=== PATIENT | male | born 1980 | race Native Hawaiian/Other Pacific Islander ===

== ENCOUNTER 2017-10-25 13:23 | Emergency (ER) | payer OTHER ==
[~2017-10-25] VITALS: Ht 185.4 cm; Wt 136.1 kg
[2017-10-25 14:04] LABS: PLATELET COUNT 220 K/uL (142-355)
[2017-10-25 14:08] LABS: POTASSIUM 3.5 mmol/L (3.6-5.2)
== END 2017-10-25 15:14 | disposition home or self-care (01) ==
LOC: ED 13:23
DX: R10.9 Unspecified abdominal pain (principal)
CPT/HCPCS: 36415; 74022; 80053; 82150; 83690; 85027; 93005; 99283

== ENCOUNTER 2018-01-04 17:50 | Observation (INO) | payer OTHER ==
[~2018-01-04] VITALS: Ht 185.4 cm; Wt 133.9 kg
[2018-01-04 18:05] VITALS: BP 155/90; TEMP 98.6
[2018-01-04 18:15] LABS: PLATELET COUNT 333 K/uL (142-355)
[2018-01-04 18:40] LABS: POTASSIUM 3.7 mmol/L (3.6-5.2)
[2018-01-04 18:54] LABS: PARTIAL THROMBOPLASTIN TIME 24.2 SECONDS (24.5-33.6)
[2018-01-04 22:33] VITALS: BP 133/84; TEMP 98.4; Ht 185.4 cm; Wt 133.9 kg
[2018-01-04 23:45] VITALS: BP 132/84; TEMP 98.1
[2018-01-05 03:54] VITALS: BP 108/63; TEMP 98.3
[2018-01-05 08:00] VITALS: BP 96/66; TEMP 98
[2018-01-05] MEDS ORDERED: PANTOPRAZOLE 40MG TA PO (08:34)
[2018-01-05] MEDS ORDERED: NITR0.4S SL (08:34)
== END 2018-01-05 10:54 | disposition home or self-care (01) ==
LOC: ED 17:50 → MED/SURG 19:10
DX: R07.89 Other chest pain (principal)
CPT/HCPCS: 36415; 80053; 82550; 84484; 85027; 85610; 85730; 93005; 96365; 96366; 96374; 99220; 99284; G0378; J1650; J2405

== ENCOUNTER 2018-12-06 15:17 | Emergency (ER) | payer OTHER ==
[~2018-12-06] VITALS: Ht 185.4 cm; Wt 142.9 kg
[~2018-12-06 15:17] MED LIST: NITR0.4S SL; PANTOPRAZOLE 40MG TA PO
[2018-12-06 15:37] VITALS: TEMP 98.6
[2018-12-06 17:32] VITALS: BP 138/74
== END 2018-12-06 17:32 | disposition home or self-care (01) ==
LOC: ED 15:17
DX: S40.012A Contusion of left shoulder, initial encounter (principal); S80.02XA Contusion of left knee, initial encounter; V49.9XXA Car occupant (driver) (passenger) injured in unspecified traffic accident, initial encounter
CPT/HCPCS: 99283

== ENCOUNTER 2020-04-26 12:21 | Emergency (ER) | payer OTHER ==
[~2020-04-26] VITALS: Ht 185.4 cm; Wt 141.5 kg
[2020-04-26 12:27] VITALS: BP 176/99; TEMP 98.9
== END 2020-04-26 13:14 | disposition home or self-care (01) ==
LOC: ED 12:21
DX: K64.5 Perianal venous thrombosis (principal)
CPT/HCPCS: 99282